=== PATIENT | male | born 2000 ===

== ENCOUNTER 2020-07-10 21:18 | Emergency (ER) | payer SELFPAY ==
[~2020-07-10] VITALS: Ht 175.3 cm; Wt 71.4 kg
[2020-07-10 21:47] VITALS: BP 127/69
[2020-07-10 22:10] LABS: MICROSCOPIC NOT IND
== END 2020-07-10 22:56 | disposition home or self-care (01) ==
LOC: ED 21:45
DX: S20.213A Contusion of bilateral front wall of thorax, initial encounter (principal); W18.30XA Fall on same level, unspecified, initial encounter; Y93.89 Activity, other specified; Y92.009 Unspecified place in unspecified non-institutional (private) residence as the place of occurrence of the external cause; Y99.8 Other external cause status
CPT/HCPCS: 71111; 81003; 99284